=== PATIENT | female | born 1925 | race Caucasian/White ===

== ENCOUNTER 2016-11-11 22:01 | Emergency (ER) | payer MEDICARE, OTHER ==
[2016-11-11 20:24] LABS: BASOPHILS 0.1 %; BASOPHILS ABSOLUTE 0.01 10/3/uL (0.0-0.16); EOSINOPHILS 1.4 %; EOSINOPHILS ABSOLUTE 0.15 10/3/uL (0.0-0.53); HEMATOCRIT 44.8 % (36.0-48.0); HEMOGLOBIN 15.9 g/dL (12.0-16.0); IMMATURE GRANULOCYTES 0.5 %; IMMATURE GRANULOCYTES ABSOLUTE 0.05 10/3/uL (0.0-0.11); LYMPHOCYTES 13.9 %; LYMPHOCYTES ABSOLUTE 1.47 10/3/uL (0.67-4.30); MEAN CORPUS HGB CONC 35.5 g/dL (32.0-36.0); MEAN CORPUSCULAR HEMOGLOB 32.3 pg (26.0-34.0); MEAN CORPUSCULAR VOLUME 90.9 fL (80-100); MEAN PLATELET VOLUME 11.7 fL (9.2-13.0); MONOCYTES 10.6 %; MONOCYTES ABSOLUTE 1.12 10/3/uL (0.21-1.20); NEUTROPHILS 73.5 %; NEUTROPHILS ABSOLUTE 7.79 10/3/uL (2.02-8.40); PLATELET COUNT 191 10/3/uL (150-400); RBC DISTRIBUTION WIDTH 12.9 % (12.0-16.0); RED CELL COUNT 4.93 10/6/uL (4.0-5.6); WHITE BLOOD CELLS 10.6 10/3/uL (4.5-10.5)
[2016-11-11 20:27] LABS: ER CBC TAT 0 Hrs 03 Mins; MANUAL DIFF NO %
[2016-11-11 20:37] LABS: INTERNATIONAL NORMAL RATI 1.1 UNITS (-); PARTIAL THROMBO TIME 31.7 SEC (22.5-37.2); PROTIME (NOT ORD) 13.9 SEC (12.0-14.5)
[2016-11-11 20:41] LABS: CALCIUM, SERUM 9.7 MG/DL (8.5-10.4); CHLORIDE, SERUM 101 MMOL/L (96-112); CO2 (CARBON DIOXIDE) 31 MMOL/L (24-34); CREATININE 1.13 MG/DL (0.55-1.02); GFR AFRICAN AMERICAN 50 ML/MIN (>=60); GFR NON AFRICAN AMERICAN 43 ML/MIN (>=60); GLUCOSE, SERUM 123 MG/DL (60-99); POTASSIUM, SERUM 3.6 MMOL/L (3.5-5.3); SODIUM, SERUM 138 MMOL/L (135-148)
[2016-11-11 20:44] LABS: BUN (BLOOD UREA NITROGEN) 31 MG/DL (6-23)
[~2016-11-11 22:01] MED LIST: ASAB PO; ATV.5 PO; CENTRUM PO; DIOV160 PO; DIOVAN320 MG PO; FISH OIL1200 MG PO; FISH-EPA1000 MG PO; HALF81 PO; LEXAPRO10 PO; LOP25 PO; MAX25 PO; MELATONIN5 M1 PO; MULTIVITAMI1 PO; PEP20 PO; PLAVIX PO; PRAVACHOL40 MG PO; PROZAC40 MG PO; TYLENOL PM PO; ZOL50 PO
== END 2016-11-11 22:27 | disposition home or self-care (01) ==
LOC: ER 22:01
PROVIDERS: Nurse Practitioner Acute Care
DX: S00.03XA Contusion of scalp, initial encounter (principal); I10 Essential (primary) hypertension; K21.9 Gastro-esophageal reflux disease without esophagitis; E11.9 Type 2 diabetes mellitus without complications; Z79.82 Long term (current) use of aspirin; Z79.899 Other long term (current) drug therapy; W19.XXXA Unspecified fall, initial encounter
CPT/HCPCS: 70450; 80048; 85025; 85610; 85730; 99284